=== PATIENT | male | born 1995 | race Caucasian/White ===

== ENCOUNTER 2017-11-22 18:17 | Emergency (ER) | payer BC ==
[2017-11-22 20:29] VITALS: BP 136/66
--- NOTE | 2017-11-22 20:43 | UC ---
Complaint Male HPI - HPI Summary HPI Summary: C/O stinging with urination since yesterday into this morning. Better after drinking cranberry juice. No frequency or urgency. Finishing up some URI symptoms that started a week ago. - History of Current Complaint Stated Complaint: URINARY COMPLAINT Hx Obtained From: Patient Onset/Duration: Sudden Onset, Lasting Days - 1, Resolved Timing: Intermittent Severity Initially: Mild Severity Currently: None Location: Penis - urethral meatus. Character: Burning - stinging Aggravating Factor(s): Voiding Alleviating Factor(s): Nothing Associated Signs And Symptoms: Positive: Fever, Dysuria. Negative: Hematuria, Penile Swelling, Penile Discharge - Allergies/Home Medications Allergies/Adverse Reactions: Allergies Allergy/AdvReac Type Severity Reaction Status Date / Time Amoxicillin Allergy Hives Verified 11/22/17 20:29 Home Medications: Home Medications NK [No Home Medications Reported] 11/22/17 [History Confirmed 11/22/17] PMH/Surg Hx/FS Hx/Imm Hx Previously Healthy: Yes - Surgical History Surgical History: None - Family History Known Family History: Positive: Cardiac Disease, Diabetes - Social History Occupation: Employed Full-time Lives: With Family Alcohol Use: Weekly Alcohol Amount: 18 Substance Use Type: None Smoking Status (MU): Never Smoked Tobacco Have You Smoked in the Last Year: No Review of Systems Constitutional: Fever Respiratory: Cough Genitourinary: Dysuria Is Patient Immunocompromised?: No All Other Systems Reviewed And Are Negative: Yes Physical Exam Triage Information Reviewed: Yes Appearance: No Pain Distress, Well-Nourished, Ill-Appearing Vital Signs: Initial Vital Signs Temp 100.7 F 11/22/17 20:18 Pulse 107 11/22/17 20:18 Resp 18 11/22/17 20:18 BP 136/66 11/22/17 20:18 Vital Signs Reviewed: Yes Eyes: Positive: Conjunctiva Inflamed - OU ENT: Positive: Pharynx normal, TMs normal Neck exam: Normal Respiratory Exam: Normal Cardiovascular Exam: Normal Abdominal Exam: Normal Abdomen Description: Positive: Other: - , penis normal, no discharge or erythema at the meatus. Musculoskeletal Exam: Normal Neurological Exam: Normal Psychological Exam: Normal Skin Exam: Normal Complaint Male Course/Dx - Differential Dx/Diagnosis Differential Diagnosis/HQI/PQRI: Epididymitis, Pyelonephritis, Urinary Tract Infection Provider Diagnoses: Dysuria. Viral syndrome Discharge - Discharge Plan Condition: Stable Disposition: HOME Patient Education Materials: Dysuria (ED), Viral Syndrome (ED) Referrals: Gabriela Nunez [Primary Care Provider] -
== END 2017-11-22 21:23 | disposition home or self-care (01) ==
LOC: UCCORT 18:17
DX: R30.0 Dysuria (principal); B34.9 Viral infection, unspecified; Z88.0 Allergy status to penicillin
CPT/HCPCS: 81003; 87502; 99201; G0463